=== PATIENT | female | born 1990 | race Hispanic/Latino ===

== ENCOUNTER 2018-06-09 15:53 | Emergency (ER) | payer BC ==
--- NOTE | 2018-06-09 17:06 | ED PDOC ---
HPI: Allergic Reaction Chief Complaint (Provider): Allergic Reaction History Per: Patient Onset/Duration Of Symptoms: Days Current Symptoms Are (Timing): Still Present Associated Symptoms: Itching Additional Complaint(s): 27 year old female present to the ER for an evaluation of an allergic reaction. Patient has had mild upper respiratory symptoms with nasal congestion and cough. She was seen at urgent care and given nebulizer and prednisone. After taking 40mg of predisone last night, patient woke up with itchiness that has worsened with "red blothches" throughout her body, which she is attributing to the prednisone. Patient denies intraoral involvement or difficulty breathing or swallowing. Patient also has mild persistent cough which is unchanged since upper respiratory infection and she took additional medication, otc robitussin. PMD: No Family Provider <Kylie Cameron - Last Filed: 06/09/18 20:19> <Jethro Monique - Last Filed: 06/11/18 15:36> Time Seen by Provider: 06/09/18 16:16 Chief Complaint (Nursing): Allergic Reaction Past Medical History Reviewed: Historical Data, Nursing Documentation, Vital Signs Vital Signs: Last Vital Signs Temp 98.6 F 06/09/18 16:03 Pulse 86 06/09/18 16:03 Resp 16 06/09/18 16:03 BP 111/79 06/09/18 16:03 Pulse Ox 98 06/09/18 16:03 - Medical History PMH: No Chronic Diseases - Family History Family History: States: Unknown Family Hx <Kylie Cameorn - Last Filed: 06/09/18 20:19> Vital Signs: Last Vital Signs Temp 98 F 06/09/18 19:00 Pulse 78 06/09/18 19:00 Resp 18 06/09/18 19:00 BP 122/68 06/09/18 19:00 Pulse Ox 98 06/09/18 20:24 <Jethro Monique - Last Filed: 06/11/18 15:36> - Home Medications Home Medications: Ambulatory Orders Medication Instructions Recorded Azithromycin [Zithromax] 250 mg PO DAILY #6 tab 06/09/18 Famotidine [Pepcid] 20 mg PO Q12 #30 tab 06/09/18 RX: Albuterol HFA [Ventolin HFA 90 2 puff IH [id number] #1 puff 06/09/18 mcg/actuation (8 g)] - Allergies Allergies/Adverse Reactions: Allergies Allergy/AdvReac Type Severity Reaction Status Date / Time cefaclor [From [facility]] Allergy URTICARIA Verified 06/09/18 16:03 Review of Systems ROS Statement: Except As Marked, All Systems Reviewed And Found Negative Constitutional: Negative for: Fever Respiratory: Positive for: Cough Skin: Positive for: Other (red blanches) <Kylie Cameron S - Last Filed: 06/09/18 20:19> Physical Exam - Reviewed Nursing Documentation Reviewed: Yes Vital Signs Reviewed: Yes - Physical Exam Appears: Positive for: Well, Non-toxic, No Acute Distress Head Exam: Positive for: ATRAUMATIC, NORMAL INSPECTION, NORMOCEPHALIC Skin: Positive for: Warm, Dry. Negative for: Normal Color (mild erythema to chest and back) Eye Exam: Positive for: Normal appearance ENT: Positive for: Normal ENT Inspection (no lip swelling) Cardiovascular/Chest: Positive for: Regular Rate, Rhythm. Negative for: Murmur Respiratory: Positive for: Normal Breath Sounds (no patent airway). Negative for: Decreased Breath Sounds, Wheezing, Respiratory Distress Neurologic/Psych: Positive for: Alert, Oriented (x3). Negative for: Motor/Sensory Deficits <Kylie Cameron S - Last Filed: 06/09/18 20:19> - ECG O2 Sat by Pulse Oximetry: 98 (RA) Pulse Ox Interpretation: Normal <Kylie Cameron S - Last Filed: 06/09/18 20:19> Disposition - Patient ED Disposition Is Patient to be Admitted: No - Disposition Disposition: Routine/Home Disposition Time: 18:34 <Kylie Cameron S - Last Filed: 06/09/18 20:19> <Jethro Monique - Last Filed: 06/11/18 15:36> - Clinical Impression Clinical Impression: Allergic reaction, Bronchitis - Disposition Condition: IMPROVED Prescriptions: RX: Albuterol HFA [Ventolin HFA 90 mcg/actuation (8 g)] 2 puff IH [id number] #1 puff Azithromycin [Zithromax] 250 mg PO DAILY #6 tab Famotidine [Pepcid] 20 mg PO Q12 #30 tab Instructions: Acute Bronchitis, Drug Allergy Forms: [employer] ([place]), [facility] ED School/Work Excuse Medical Decision Making Medical Decision Making: Time:1627 --Urine --Benadryl 50mg --Pepcid 20mg --Reevaluation Benadryl po and pepcid po given. Pt. observed x 1.5 hrs and reports mild improvement of itching. Pt. resting comfortably, lungs clear, no difficulty breathing or swallowing. Pt. tolerating po. Advised to d/c robitussin and prednisone, continue benadryl and pepcid. Pt given a rx for albuterol and zithro to fill once allergic reaction improves, if her bronchitis remains. Stressed importance of close f/u and to return to ED immed if difficulty breathing or swallowing. Scribe Attestation: Documented by Tyson Ashley, acting as a scribe for Kylie Cameron PA-C. Provider Scribe Attestation: All medical record entries made by the Scribe were at my direction and personally dictated by me. I have reviewed the chart and agree that the record accurately reflects my personal performance of the history, physical exam, medical decision making, and the department course for this patient. I have also personally directed, reviewed, and agree with the discharge instructions and disposition. <Kylie Cameron - Last Filed: 06/09/18 20:19> Addendum Addendum: 06/11/18 15:36 Reviewed Pa chart and agree. <Jethro Monique - Last Filed: 06/11/18 15:36>
[2018-06-09 19:35] VITALS: BP 122/68; PULSE 78; RESP 18; TEMP 98
[2018-06-09 20:24] VITALS: O2SAT 98
== END 2018-06-09 19:00 | disposition home or self-care (01) ==
LOC: H.ER 15:53
DX: T78.40XA Allergy, unspecified, initial encounter (principal); J40 Bronchitis, not specified as acute or chronic